=== PATIENT | male | born 1955 | race Caucasian/White ===

== ENCOUNTER 2017-07-23 13:50 | Inpatient (IN) | payer MEDICARE, OTHER ==
[~2017-07-23] VITALS: Ht 170.2 cm; Wt 61.2 kg
[2017-07-23] MEDS ORDERED: OLME40TA12 PO (14:19)
[2017-07-23] MEDS ORDERED: OMEG1CAP74 PO (14:19)
[2017-07-23] MEDS ORDERED: LEVO88TA5 PO (14:19)
[2017-07-23] MEDS ORDERED: METO100T3 PO (14:19)
[2017-07-23] MEDS ORDERED: DABI75CA3 PO (14:19)
[2017-07-23] MEDS ORDERED: PRED1TAB PO (14:19)
[2017-07-23] MEDS ORDERED: AMLO2.5T PO (14:19)
[2017-07-23] MEDS ORDERED: OMEP20CA10 PO (14:19)
[2017-07-23] MEDS ORDERED: BIMA2.5D5 EACHEYE (14:19)
[2017-07-23] MEDS ORDERED: AZAT50TA PO (14:19)
[2017-07-23] MEDS ORDERED: LABE200T PO (14:19)
[2017-07-23] MEDS ORDERED: LORA-588 PO (14:19)
[2017-07-23] MEDS ORDERED: LABE100T PO (14:19)
[2017-07-23] MEDS ORDERED: RISE150T PO (14:19)
[2017-07-23] MEDS ORDERED: TAMS0.4C34 PO (14:19)
[2017-07-23 14:35] LABS: BASOPHILS % (AUTO) 0.3 % (0.0-2.0); EOSINOPHILS # (AUTO) 0.1 K/uL (0.0-0.7); EOSINOPHILS % (AUTO) 0.9 % (0.0-7.0); HEMATOCRIT 35.8 % (40-50); HEMOGLOBIN 11.9 G/DL (14.0-18.0); LYMPHOCYTES # (AUTO) 0.4 K/UL (0.8-4.8); LYMPHOCYTES % (AUTO) 7.8 % (20.5-51.5); MEAN CORPUSCULAR HEMOGLOBIN 33.7 UUG (27.0-31.0); MEAN CORPUSCULAR HGB CONC 33 g/dL (32.0-37.0); MEAN CORPUSCULAR VOLUME 101.1 FL (82.0-92.0); MONOCYTES # (AUTO) 0.4 K/UL (0.1-1.30); MONOCYTES % (AUTO) 7.1 % (0.0-11.0); NEUTROPHILS # (AUTO) 4.7 K/UL (1.8-8.9); NEUTROPHILS % (AUTO) 83.9 % (38.5-71.5); PLATELET COUNT (AUTO) 289 K/UL (150-450); RED BLOOD CELL COUNT(AUTO) 3.54 MIL/UL (4.7-6.1); WHITE BLOOD COUNT (AUTO) 5.6 K/UL (4.0-11.2)
[2017-07-23 14:38] LABS: CREATININE 1.3 mg/dL (0.6-1.3); POTASSIUM 5.2 mmol/L (3.5-5.1)
[2017-07-23 14:49] LABS: BILIRUBIN,DIRECT 0.1 mg/dL (0.0-0.2); BILIRUBIN,TOTAL 0.6 mg/dL (0.2-1.0); TOTAL PROTEIN, SERUM 7.6 g/dL (6.4-8.2)
[2017-07-23 16:20] VITALS: BP 170/100
[2017-07-23 20:13] LABS: *BILIRUBIN,URIN NEGATIVE (NEGATIVE); *BLOOD, URINE NEGATIVE (NEGATIVE); *CLARITY,URINE CLEAR (CLEAR); *COLOR,URINE YELLOW (YELLOW); *KETONES,URINE NEGATIVE (NEGATIVE); *PROTEIN,URINE 1+ (NEGATIVE); LEUKOCYTE ESTERASE ,URINE NEGATIVE (NEGATIVE); NITRITE, URINE NEGATIVE (NEGATIVE); PH,URINE 7.5 (5.0-8.0); UGLUCOSE NEGATIVE (NEGATIVE)
[2017-07-23 20:23] LABS: MUCUS,URINE MODERATE /LPF (0-FEW); WBC,URINE 0-3 /HPF (0-3)
[2017-07-23 20:37] VITALS: BP 158/93
[2017-07-24 05:56] VITALS: BP 148/86
[2017-07-24 06:30] LABS: BASOPHILS % (AUTO) 0.5 % (0.0-2.0); EOSINOPHILS # (AUTO) 0.1 K/uL (0.0-0.7); EOSINOPHILS % (AUTO) 1.2 % (0.0-7.0); LYMPHOCYTES # (AUTO) 0.5 K/UL (0.8-4.8); LYMPHOCYTES % (AUTO) 9.3 % (20.5-51.5); MEAN CORPUSCULAR HEMOGLOBIN 33.1 UUG (27.0-31.0); MEAN CORPUSCULAR HGB CONC 33 g/dL (32.0-37.0); MEAN CORPUSCULAR VOLUME 101.1 FL (82.0-92.0); MONOCYTES # (AUTO) 0.4 K/UL (0.1-1.30); MONOCYTES % (AUTO) 8.3 % (0.0-11.0); NEUTROPHILS % (AUTO) 80.7 % (38.5-71.5)
[2017-07-24 06:31] LABS: RED BLOOD CELL COUNT(AUTO) 2.96 MIL/UL (4.7-6.1)
[2017-07-24 06:32] LABS: HEMATOCRIT 29.9 % (40-50); HEMOGLOBIN 9.8 G/DL (14.0-18.0); PLATELET COUNT (AUTO) 202 K/UL (150-450)
[2017-07-24 06:34] LABS: THYROID STIMULATING HORMONE 1.228 mIU/mL (0.358-3.740)
[2017-07-24 06:37] LABS: BILIRUBIN,TOTAL 0.7 mg/dL (0.2-1.0); MAGNESIUM 1.7 mg/dL (1.8-2.4); PHOSPHOROUS 2.5 mg/dL (2.5-4.9); POTASSIUM 4.2 mmol/L (3.5-5.1); TOTAL PROTEIN, SERUM 6.3 g/dL (6.4-8.2)
[2017-07-24] MEDS ORDERED: ALEN70TA45 PO (08:33)
[2017-07-24 10:17] LABS: IRON, SERUM 116 ug/dL (50-175)
[2017-07-24 11:38] VITALS: BP 99/50
[2017-07-24 11:55] VITALS: BP 113/77
[2017-07-24 16:54] VITALS: BP 103/69
[2017-07-24 20:00] VITALS: BP 115/69
[2017-07-25] VITALS (7 sets, daily range): BP systolic 105–138; BP diastolic 49–92
[2017-07-25 06:24] LABS: BILIRUBIN,TOTAL 0.9 mg/dL (0.2-1.0); CREATININE 0.9 mg/dL (0.6-1.3); MAGNESIUM 1.8 mg/dL (1.8-2.4); PHOSPHOROUS 2.7 mg/dL (2.5-4.9); POTASSIUM 3.9 mmol/L (3.5-5.1); TOTAL PROTEIN, SERUM 6.3 g/dL (6.4-8.2)
[2017-07-25 06:29] LABS: BASOPHILS % (AUTO) 0.2 % (0.0-2.0); EOSINOPHILS % (AUTO) 0.7 % (0.0-7.0); HEMATOCRIT 28.7 % (40-50); HEMOGLOBIN 9.8 G/DL (14.0-18.0); LYMPHOCYTES # (AUTO) 0.4 K/UL (0.8-4.8); LYMPHOCYTES % (AUTO) 6.2 % (20.5-51.5); MEAN CORPUSCULAR HEMOGLOBIN 34.4 UUG (27.0-31.0); MEAN CORPUSCULAR HGB CONC 34 g/dL (32.0-37.0); MONOCYTES # (AUTO) 0.5 K/UL (0.1-1.30); MONOCYTES % (AUTO) 7.8 % (0.0-11.0); NEUTROPHILS # (AUTO) 5.1 K/UL (1.8-8.9); NEUTROPHILS % (AUTO) 85.1 % (38.5-71.5); PLATELET COUNT (AUTO) 187 K/UL (150-450); RED BLOOD CELL COUNT(AUTO) 2.84 MIL/UL (4.7-6.1)
[2017-07-25 09:50] LABS: CREATININE 1.2 mg/dL (0.6-1.3); POTASSIUM 4.5 mmol/L (3.5-5.1)
[2017-07-25 09:53] LABS: EOSINOPHILS % (AUTO) 0.3 % (0.0-7.0); HEMATOCRIT 28.9 % (40-50); HEMOGLOBIN 9.6 G/DL (14.0-18.0); LYMPHOCYTES # (AUTO) 0.2 K/UL (0.8-4.8); MEAN CORPUSCULAR HEMOGLOBIN 33.4 UUG (27.0-31.0); MEAN CORPUSCULAR HGB CONC 33 g/dL (32.0-37.0); MEAN CORPUSCULAR VOLUME 100.3 FL (82.0-92.0); MONOCYTES # (AUTO) 0.5 K/UL (0.1-1.30); MONOCYTES % (AUTO) 6.3 % (0.0-11.0); NEUTROPHILS # (AUTO) 6.8 K/UL (1.8-8.9); NEUTROPHILS % (AUTO) 90.4 % (38.5-71.5); PLATELET COUNT (AUTO) 225 K/UL (150-450); RED BLOOD CELL COUNT(AUTO) 2.88 MIL/UL (4.7-6.1); WHITE BLOOD COUNT (AUTO) 7.5 K/UL (4.0-11.2)
[2017-07-25 11:44] LABS: BAND % (MANUAL) 3 % (0-10); LYMPHOCYTES % (MANUAL) 1 % (20-40); MONOCYTES % (MANUAL) 5 % (2-10); NEUTROPHILS % (MANUAL) 91 % (42-75)
[2017-07-26 00:07] VITALS: BP 115/75
[2017-07-26 04:34] VITALS: BP 117/79
[2017-07-26 07:18] LABS: BASOPHILS % (AUTO) 0.2 % (0.0-2.0); EOSINOPHILS % (AUTO) 0.7 % (0.0-7.0); HEMATOCRIT 25.8 % (40-50); HEMOGLOBIN 8.5 G/DL (14.0-18.0); LYMPHOCYTES # (AUTO) 0.6 K/UL (0.8-4.8); LYMPHOCYTES % (AUTO) 8.6 % (20.5-51.5); MEAN CORPUSCULAR HEMOGLOBIN 33.7 UUG (27.0-31.0); MEAN CORPUSCULAR HGB CONC 33 g/dL (32.0-37.0); MEAN CORPUSCULAR VOLUME 102.1 FL (82.0-92.0); MONOCYTES # (AUTO) 0.6 K/UL (0.1-1.30); MONOCYTES % (AUTO) 8.9 % (0.0-11.0); NEUTROPHILS # (AUTO) 5.5 K/UL (1.8-8.9); NEUTROPHILS % (AUTO) 81.6 % (38.5-71.5); PLATELET COUNT (AUTO) 204 K/UL (150-450); RED BLOOD CELL COUNT(AUTO) 2.53 MIL/UL (4.7-6.1); WHITE BLOOD COUNT (AUTO) 6.7 K/UL (4.0-11.2)
[2017-07-26 07:54] LABS: BILIRUBIN,TOTAL 0.7 mg/dL (0.2-1.0); CREATININE 0.9 mg/dL (0.6-1.3); MAGNESIUM 1.8 mg/dL (1.8-2.4); PHOSPHOROUS 2.4 mg/dL (2.5-4.9); POTASSIUM 4.1 mmol/L (3.5-5.1); TOTAL PROTEIN, SERUM 6.1 g/dL (6.4-8.2)
[2017-07-26 12:11] VITALS: BP 105/64
[2017-07-26 15:20] VITALS: BP 100/61
[2017-07-26 17:00] LABS: HEMOGLOBIN 8.8 G/DL (14.0-18.0)
[2017-07-26 20:00] VITALS: BP 100/64
[2017-07-27 04:00] VITALS: BP 144/79
[2017-07-27 06:40] LABS: BASOPHILS % (AUTO) 0.6 % (0.0-2.0); EOSINOPHILS % (AUTO) 0.8 % (0.0-7.0); LYMPHOCYTES # (AUTO) 0.6 K/UL (0.8-4.8); LYMPHOCYTES % (AUTO) 10.5 % (20.5-51.5); MEAN CORPUSCULAR HEMOGLOBIN 34.4 UUG (27.0-31.0); MEAN CORPUSCULAR HGB CONC 33 g/dL (32.0-37.0); MEAN CORPUSCULAR VOLUME 102.9 FL (82.0-92.0); MONOCYTES # (AUTO) 0.4 K/UL (0.1-1.30); MONOCYTES % (AUTO) 7.1 % (0.0-11.0); NEUTROPHILS # (AUTO) 5.1 K/UL (1.8-8.9); PLATELET COUNT (AUTO) 184 K/UL (150-450); WHITE BLOOD COUNT (AUTO) 6.1 K/UL (4.0-11.2)
[2017-07-27 06:49] LABS: HEMATOCRIT 23.7 % (40-50); HEMOGLOBIN 7.9 G/DL (14.0-18.0)
[2017-07-27 07:17] LABS: PHOSPHOROUS 2.1 mg/dL (2.5-4.9); TOTAL PROTEIN, SERUM 5.8 g/dL (6.4-8.2)
[2017-07-27 07:32] LABS: BILIRUBIN,TOTAL 0.6 mg/dL (0.2-1.0); CREATININE 0.8 mg/dL (0.6-1.3); MAGNESIUM 1.7 mg/dL (1.8-2.4)
[2017-07-27 11:42] VITALS: BP 113/72
[2017-07-27 15:29] VITALS: BP 116/77
[2017-07-27 20:28] VITALS: BP 123/81
[2017-07-28 00:33] VITALS: BP 138/80
[2017-07-28 04:00] VITALS: BP 130/75
[2017-07-28 06:41] LABS: BASOPHILS % (AUTO) 0.7 % (0.0-2.0); EOSINOPHILS # (AUTO) 0.1 K/uL (0.0-0.7); EOSINOPHILS % (AUTO) 1.5 % (0.0-7.0); HEMATOCRIT 24.3 % (40-50); LYMPHOCYTES # (AUTO) 0.6 K/UL (0.8-4.8); MEAN CORPUSCULAR HEMOGLOBIN 33.4 UUG (27.0-31.0); MEAN CORPUSCULAR HGB CONC 33 g/dL (32.0-37.0); MEAN CORPUSCULAR VOLUME 101.4 FL (82.0-92.0); MONOCYTES # (AUTO) 0.4 K/UL (0.1-1.30); MONOCYTES % (AUTO) 8.2 % (0.0-11.0); NEUTROPHILS # (AUTO) 3.9 K/UL (1.8-8.9); NEUTROPHILS % (AUTO) 77.6 % (38.5-71.5); PLATELET COUNT (AUTO) 214 K/UL (150-450)
[2017-07-28 07:14] LABS: BILIRUBIN,TOTAL 0.8 mg/dL (0.2-1.0); CREATININE 0.8 mg/dL (0.6-1.3); MAGNESIUM 1.9 mg/dL (1.8-2.4); PHOSPHOROUS 2.5 mg/dL (2.5-4.9); TOTAL PROTEIN, SERUM 5.8 g/dL (6.4-8.2)
[2017-07-28 11:35] VITALS: BP 95/56
[2017-07-28] MEDS ORDERED: ALEN70TA3 PO (12:51)
[2017-07-28] MEDS ORDERED: PANT40TA2 PO (12:51)
[2017-07-28] MEDS ORDERED: METO100T3 PO (12:51)
[2017-07-28] MEDS ORDERED: HYDR-3326 PO (12:51)
[2017-07-28] MEDS ORDERED: HYDR25TA86 PO (12:51)
[2017-07-28] MEDS ORDERED: POLY17PO4 PO (12:53)
== END 2017-07-28 13:40 | DRG 480 ==
LOC: ER 13:50 → MED 15:17 → TELE 07-27 18:52 → MED 07-28 10:30
PROVIDERS: ADMIT Internal Medicine; ATTEND Internal Medicine
PROC: 0QS906Z Reposition Left Femoral Shaft with Intramedullary Internal Fixation Device, Open Approach (ICD-10-PCS; principal; 2017-07-25 07:00)
DX: S72.302A Unspecified fracture of shaft of left femur, initial encounter for closed fracture (principal); N17.0 Acute kidney failure with tubular necrosis; E43 Unspecified severe protein-calorie malnutrition; D68.9 Coagulation defect, unspecified; K50.90 Crohn's disease, unspecified, without complications; Q23.1 Congenital insufficiency of aortic valve; I11.0 Hypertensive heart disease with heart failure; I50.9 Heart failure, unspecified; J98.11 Atelectasis; E83.42 Hypomagnesemia; E83.39 Other disorders of phosphorus metabolism; E87.5 Hyperkalemia; S80.212A Abrasion, left knee, initial encounter; Z86.718 Personal history of other venous thrombosis and embolism; Z88.0 Allergy status to penicillin; W01.0XXA Fall on same level from slipping, tripping and stumbling without subsequent striking against object, initial encounter; Y93.01 Activity, walking, marching and hiking; Y92.481 Parking lot as the place of occurrence of the external cause; Z79.01 Long term (current) use of anticoagulants; Z79.899 Other long term (current) drug therapy; F70 Mild intellectual disabilities; H91.90 Unspecified hearing loss, unspecified ear; Z79.52 Long term (current) use of systemic steroids; N40.0 Benign prostatic hyperplasia without lower urinary tract symptoms; S80.02XA Contusion of left knee, initial encounter; M54.5 Low back pain; I08.3 Combined rheumatic disorders of mitral, aortic and tricuspid valves; E83.51 Hypocalcemia; Z68.21 Body mass index [BMI] 21.0-21.9, adult; I77.819 Aortic ectasia, unspecified site; D53.9 Nutritional anemia, unspecified; R74.0 Nonspecific elevation of levels of transaminase and lactic acid dehydrogenase [LDH]; R73.9 Hyperglycemia, unspecified; Z86.03 Personal history of neoplasm of uncertain behavior
CPT/HCPCS: 36415; 70030-TC; 71010; 72100; 73502; 73551; 73560; 76000; 83550; 83735; 84100; 84132; 84443; 85018; 85025; 85730; 86140; 86850; 86900; 86901; 86920; 87086; 93005; 93307; 97110; 97116; 97530; A4217; A4649; A4663; J0690; J1720; J2250; J2270; J2370; J2405; J2765; J3010; J3475; J3490; J7030; J7040; J7120; J7500; J7512

== ENCOUNTER 2017-07-28 10:51 | Inpatient (IN) | payer MEDICARE, OTHER ==
[~2017-07-28] VITALS: Ht 172.7 cm; Wt 61.7 kg
[~2017-07-28 10:51] MED LIST: ALEN70TA45 PO; AMLO2.5T PO; AZAT50TA PO; BIMA2.5D5 EACHEYE; DABI75CA3 PO; LABE100T PO; LABE200T PO; LEVO88TA5 PO; LORA-588 PO; METO100T3 PO; OLME40TA12 PO; OMEG1CAP74 PO; OMEP20CA10 PO; PRED1TAB PO; TAMS0.4C34 PO
[2017-07-28] MEDS ORDERED: PANT40TA2 PO (12:51)
[2017-07-28] MEDS ORDERED: METO100T3 PO (12:51)
[2017-07-28] MEDS ORDERED: HYDR25TA86 PO (12:51)
[2017-07-28] MEDS ORDERED: HYDR-3326 PO (12:51)
[2017-07-28] MEDS ORDERED: ALEN70TA3 PO (12:51)
[2017-07-28] MEDS ORDERED: POLY17PO4 PO (12:53)
--- NOTE | 2017-07-28 14:00 | NUR ---
Pt arrived on ARU, awake, alert, oriented, and stable. pt arrived in a wheelchair accompanied by Becky TANG.. all pertinent assessments done including initial physical assessment. all wound pictures taken and placed in chart. all belongings accounted for and list on chart. med recon done and informed md about continuing medications. vital signs BP 103/71, 98.7 temp, pulse 86, RR 18, 96% o2 on RA. Accompanied with cousin Flaca, his primary caregiver. Pt and caregiver both supplied answers to assessment questions. Call light placed within reach. Will continue to monitor.
[2017-07-28] MEDS ORDERED: Z GUARD REMEDY PASTE 57 GM TUBE TOP PRN (14:30)
[2017-07-28 14:45] VITALS: BP 103/71
[2017-07-28] MEDS ORDERED: MIRALAX 17 GM POWD.PACK PO PRN (19:45)
[2017-07-28] MEDS ORDERED: hydrALAZINE HCL 25 MG TABLET PO PRN (19:45)
[2017-07-28] MEDS ORDERED: HYDROCODONE/APAP 5-325MG TABLET PO PRN (19:45)
[2017-07-28 20:36] VITALS: BP 128/82
[2017-07-28] MEDS ORDERED: AMLODIPINE 2.5 MG TABLET PO SCH (21:00)
[2017-07-28] MEDS ORDERED: LATANOPROST OPHT DROP 2.5 ML BOTTLE EACHEYE SCH (21:00)
[2017-07-28] MEDS ORDERED: TAMSULOSIN HCL 0.4 MG CAP.SR.24H PO SCH (21:00)
[2017-07-28] MEDS: AZATHIOPRINE 50 MG TABLET PO SCH (21:09)
[2017-07-28] MEDS: METOPROLOL TARTRATE 100 MG TABLET PO SCH (21:14)
[2017-07-28] MEDS: PRADAXA 75 MG PO SCH (21:15)
[2017-07-28] MEDS: OMEGA-3 FATTY ACIDS/FISH OIL CAPSULE PO SCH (21:17)
[2017-07-29] MEDS: LEVOTHYROXINE SODIUM 88 MCG TABLET PO SCH (06:44)
[2017-07-29] MEDS: PANTOPRAZOLE SODIUM 40 MG TABLET.DR PO SCH (06:45)
[2017-07-29 08:00] VITALS: BP 128/82
--- NOTE | 2017-07-29 08:22 | NUR ---
Assist patient to and from restroom per request of charge nurse. Exta large bm at this time. Notified pt nurse. Pt says he is ready to d/c.
[2017-07-29] MEDS ORDERED: Medication Not On Formulary EA (Loratadine 10 MG) PO SCH (09:00)
[2017-07-29] MEDS ORDERED: Medication Not On Formulary EA (Omega-3 Fatty Acids/Fish Oil (Fish Oil 1,000 Mg Softgel) PO SCH (09:00)
[2017-07-29] MEDS: PRADAXA 75 MG PO SCH ×2 (09:00→17:16)
[2017-07-29] MEDS ORDERED: DABIGATRAN ETEXILATE MESYLATE 75 MG CAPSULE PO SCH (09:00)
[2017-07-29] MEDS: OMEGA-3 FATTY ACIDS/FISH OIL CAPSULE PO SCH ×2 (09:30→17:23)
[2017-07-29] MEDS: LORATADINE 10 MG TABLET PO SCH (09:30)
[2017-07-29] MEDS: LABETALOL HCL 100 MG TABLET PO SCH (09:30)
[2017-07-29] MEDS: METOPROLOL TARTRATE 100 MG TABLET PO SCH ×2 (09:31→17:26)
[2017-07-29] MEDS: predniSONE 1 MG TABLET PO SCH (09:31)
--- NOTE | 2017-07-29 15:47 | NUR ---
[employer]s [employer] Director: SW met with pt and cousin in law at bedside to assess needs and provide support. Pt is a 61-year-old male admitted to ARU for functional declined and impaired mobility. Pt recently underwent ORIF of the left femur. Pt was asleep during interview, however pt's cousin in law Jeffery provided information. 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 However, per Jeffery the pt is very independent and lives close to his cousin who supervises him. Jeffery reported they often cook meals for him, but the pt also knows how to cook himself. He reported the pt takes the bus daily and goes to "work" at his cousins employment. Per Jeffery, this is to keep him "busy" and so that his cousin is able to supervise him daily. Per Jeffery, the pt fell at work on accident and has no hx of previous falls. He does not use any DME at home and is able to ambulate. The plan is for the pt to return home. Per Jeffery, the pt has a lot of support from his cousin. The goal is for the pt to ambulate once again and be discharged home. MONICA engaged in active listening. SW provided supportive counseling. SW will provide linkage to case management.
[2017-07-29] MEDS: LUMIGAN EACHEYE SCH (17:15)
[2017-07-29] MEDS: AZATHIOPRINE 50 MG TABLET PO SCH (17:17)
[2017-07-29] MEDS: TAMSULOSIN HCL 0.4 MG CAP.SR.24H PO SCH (17:23)
[2017-07-29] MEDS: AMLODIPINE 2.5 MG TABLET PO SCH (17:25)
[2017-07-29] MEDS: LABETALOL HCL 200 MG TABLET PO SCH (17:25)
[2017-07-29] MEDS ORDERED: LATANOPROST OPHT DROP 2.5 ML BOTTLE EACHEYE SCH (18:00)
[2017-07-29] MEDS ORDERED: BIMATOPROST 0.01% OPHT DROP 2.5 ML BOTTLE EACHEYE SCH (18:00)
--- NOTE | 2017-07-29 18:04 | NUR ---
DAILY NOTE IV D/C FROM LEFT FOOT #20 GAUGE. REMOVED INTACT DATED 07/26/17. PRESSURE APPLIED TO STOP BLEEDING. ODILIA WELL BY PT
--- NOTE | 2017-07-29 18:11 | NUR ---
DAILY NOTE ACCORDING TO FAMILY PT HAS AN ADVANCED DIRECTIVE AND WANTS TO BE A DNI. I INFORMED ALICIA THAT SHE NEEDS TO BRING IN THE ADVANCED DIRECTIVE. SHE SAYS SHE WILL BRING IT IN TOMORROW
[2017-07-29 19:00] VITALS: BP 79/48
[2017-07-29 20:00] VITALS: BP 87/54
[2017-07-29 20:01] VITALS: BP 90/59
[2017-07-29 20:12] VITALS: BP 98/59
--- NOTE | 2017-07-29 20:14 | NUR ---
Received patient laying in bed awake alert with delayed comprehension and communication bp 79/48. asymptomatic. denies dizziness. patient on several antihypertensive medications. last bp checked at 2009 98/50. MD made aware will continue to monitor. Addendum: 07/30/17 at 0220 by ANGELICA RODRIGUEZ RN [id number]: patient resting in bed. no s/s of hypotension or hypertension. no complaints of pain. will continue with plan of care.
[2017-07-30] MEDS: PANTOPRAZOLE SODIUM 40 MG TABLET.DR PO SCH (07:12)
[2017-07-30] MEDS: LEVOTHYROXINE SODIUM 88 MCG TABLET PO SCH (07:12)
[2017-07-30 08:29] VITALS: BP 120/86
[2017-07-30] MEDS: predniSONE 1 MG TABLET PO SCH (08:52)
[2017-07-30] MEDS: LORATADINE 10 MG TABLET PO SCH (08:55)
[2017-07-30] MEDS: LABETALOL HCL 100 MG TABLET PO SCH (08:55)
[2017-07-30] MEDS: OMEGA-3 FATTY ACIDS/FISH OIL CAPSULE PO SCH ×2 (08:55→17:54)
[2017-07-30] MEDS: METOPROLOL TARTRATE 100 MG TABLET PO SCH ×2 (08:56→18:51)
[2017-07-30] MEDS: PRADAXA 75 MG PO SCH ×2 (09:02→17:57)
--- NOTE | 2017-07-30 13:27 | NUR ---
Interdisciplinary Team Summary
[2017-07-30] MEDS: TAMSULOSIN HCL 0.4 MG CAP.SR.24H PO SCH (17:53)
[2017-07-30] MEDS: LABETALOL HCL 200 MG TABLET PO SCH (17:54)
[2017-07-30] MEDS: AMLODIPINE 2.5 MG TABLET PO SCH (17:55)
[2017-07-30] MEDS: AZATHIOPRINE 50 MG TABLET PO SCH (17:58)
[2017-07-30] MEDS: LUMIGAN EACHEYE SCH (17:58)
--- NOTE | 2017-07-30 18:51 | NUR ---
DAILY NOTE HELD LOPRESSOR FOR THIS EVENING DUE TO B/P WNL. EXPLAIN TO PT AND FAMILY AND THEY AGREE AND VERBALIZE UNDERSTANDING
--- NOTE | 2017-07-30 19:30 | NUR ---
RECEIVED PATIENT FROM DAY SHIFT NURSE. REPORT GIVEN AT BEDSIDE. PATIENT LYING IN BED. INTRODUCED SELF TO PATIENT. CALL LIGHT PLACED WITHIN REACH OF PATIENT. WILL CONTINUE TO MONITOR PATIENT THROUGH OUT SHIFT.
[2017-07-30 20:42] VITALS: BP 101/62
[2017-07-31] MEDS: PANTOPRAZOLE SODIUM 40 MG TABLET.DR PO SCH (06:30)
[2017-07-31] MEDS: LEVOTHYROXINE SODIUM 88 MCG TABLET PO SCH (06:30)
--- NOTE | 2017-07-31 06:53 | NUR ---
PATIENT SLEEPING IN BED COMFORTABLY WITH NO SIGNS OF PAIN OR DISTRESS. ALL MEDS GIVEN ORDERED. ALL NEEDS ATTENDED. PATIENT IN NO SIGN OF DISTRESS OR PAIN. SHIFT REPORT TO DAY SHIFT.
[2017-07-31 07:23] LABS: BASOPHILS % (AUTO) 0.7 % (0.0-2.0); EOSINOPHILS # (AUTO) 0.1 K/uL (0.0-0.7); EOSINOPHILS % (AUTO) 2.5 % (0.0-7.0); HEMOGLOBIN 7.8 G/DL (14.0-18.0); LYMPHOCYTES # (AUTO) 0.6 K/UL (0.8-4.8); LYMPHOCYTES % (AUTO) 13.8 % (20.5-51.5); MEAN CORPUSCULAR HEMOGLOBIN 34.1 UUG (27.0-31.0); MEAN CORPUSCULAR HGB CONC 33 g/dL (32.0-37.0); MEAN CORPUSCULAR VOLUME 102.4 FL (82.0-92.0); MONOCYTES # (AUTO) 0.4 K/UL (0.1-1.30); NEUTROPHILS # (AUTO) 3.3 K/UL (1.8-8.9); PLATELET COUNT (AUTO) 217 K/UL (150-450); WHITE BLOOD COUNT (AUTO) 4.4 K/UL (4.0-11.2)
[2017-07-31 07:36] LABS: HEMATOCRIT 23.5 % (40-50)
--- NOTE | 2017-07-31 07:45 | NUR ---
cRITICAL LAB VALUE REPORTED BY JONATHON GUZMAN. RBC-2.3, HCT-23.5, HBG-7.8. INFORMED DR BRADLEY. WILL RELAY TO COUSIN AND GIVE NECESSARY ORDERS.
[2017-07-31 07:52] LABS: BILIRUBIN,TOTAL 0.9 mg/dL (0.2-1.0); CREATININE 0.9 mg/dL (0.6-1.3); MAGNESIUM 1.6 mg/dL (1.8-2.4); PHOSPHOROUS 3.6 mg/dL (2.5-4.9); POTASSIUM 3.8 mmol/L (3.5-5.1); TOTAL PROTEIN, SERUM 5.8 g/dL (6.4-8.2)
[2017-07-31 08:00] VITALS: BP 116/75
--- NOTE | 2017-07-31 08:20 | NUR ---
Received patient, alert awake and oriented. No complaints of pain at this time. Not in any form of distress. With intact dressing over fore arm. Tolerated medications and breakfast well.
[2017-07-31] MEDS: LORATADINE 10 MG TABLET PO SCH (08:27)
[2017-07-31] MEDS: PRADAXA 75 MG PO SCH ×2 (08:27→17:09)
[2017-07-31] MEDS: predniSONE 1 MG TABLET PO SCH (08:27)
[2017-07-31] MEDS: OMEGA-3 FATTY ACIDS/FISH OIL CAPSULE PO SCH ×2 (08:27→17:09)
[2017-07-31] MEDS: METOPROLOL TARTRATE 100 MG TABLET PO SCH ×2 (08:27→17:10)
[2017-07-31] MEDS: LABETALOL HCL 100 MG TABLET PO SCH (08:28)
[2017-07-31] MEDS ORDERED: MAGNESIUM OXIDE 400 MG TABLET PO ONE (12:30)
--- NOTE | 2017-07-31 12:54 | NUR ---
SURGICAL DRESSING CHANGED OVER LEFTY HIP. WOUND OVER ARM CLEANED WITH NS. PATIENT'S RELATIVE REFUSES WOUND TO BE COVERED OVER LEFT ARM.
[2017-07-31] MEDS: LUMIGAN EACHEYE SCH (17:10)
[2017-07-31] MEDS: TAMSULOSIN HCL 0.4 MG CAP.SR.24H PO SCH (17:10)
[2017-07-31] MEDS: AZATHIOPRINE 50 MG TABLET PO SCH (17:10)
[2017-07-31] MEDS: LABETALOL HCL 200 MG TABLET PO SCH (17:11)
[2017-07-31] MEDS: AMLODIPINE 2.5 MG TABLET PO SCH (17:11)
--- NOTE | 2017-07-31 19:10 | NUR ---
Received MD order for 1 unit PRBC infusion
[2017-07-31] MEDS ORDERED: FUROSEMIDE 20 MG/2 ML VIAL IV PRN (19:15)
--- NOTE | 2017-07-31 19:55 | NUR ---
Recieved pt in bed, awake and oriented; verbally responsive and able to make needs known. No acute distress noted. No complaints of pain or discomfort at this time. Safety measures and fall precautions maintained, call light within reach. Bed locked, lowest position and side rails up x 2. Will continue to monitor.
[2017-07-31 20:00] VITALS: BP 112/66
--- NOTE | 2017-07-31 21:00 | NUR ---
Spoke with HANS Thayer, and made aware of MD orders. Received verbal consent with 2 RN witness. Consent signed and placed in chart.
[2017-07-31] MEDS ORDERED: IV NORMAL SALINE 250 ML IV PRN (23:00)
[2017-07-31 23:04] VITALS: BP 111/67
--- NOTE | 2017-07-31 23:04 | NUR ---
Started blood transfusion. Pt made aware of MD orders and procedure. No signs or symptoms of adverse reaction noted. No acute distress noted. Pt denies pain or discomfort at this time. Vitals stable and WNL. All safety measures maintained. RN at bedside.
[2017-07-31 23:19] VITALS: BP 103/64
[2017-07-31 23:34] VITALS: BP 109/69
[2017-08-01 00:34] VITALS: BP 114/73
[2017-08-01 01:34] VITALS: BP 117/60
[2017-08-01 02:04] VITALS: BP 149/90
--- NOTE | 2017-08-01 02:04 | NUR ---
Pt completed blood transfusion, tolerated well. VS stable and WNL. No acute distress noted. No adverse reactions noted. Pt in bed, appearing to be asleep but easily arousable to verbal stimuli. Pt denies discomfort or pain at this time. Pt alert and oriented, verbally responsive. All safety measures maintained, call light within reach. Will continue to monitor.
[2017-08-01] MEDS: PANTOPRAZOLE SODIUM 40 MG TABLET.DR PO SCH (06:17)
[2017-08-01] MEDS: LEVOTHYROXINE SODIUM 88 MCG TABLET PO SCH (06:17)
--- NOTE | 2017-08-01 06:31 | NUR ---
Pt in bed, awake alert and oriented. Stated that he slept "on and off" throughout the night due to the blood transfusion. Tolerated all medications well. No apparent distress noted. Call light within reach. Stable and all vital signs WNL. All safety measures and fall precautions maintained. Bed lowest position, locked and side rails up x 2.
[2017-08-01 07:57] VITALS: BP 126/80
--- NOTE | 2017-08-01 09:00 | NUR ---
pt seen and assessed. pt continues to have urge incontinence. pt continues to ask for help as needed. pt seen to overestimate own abilites. pt continued to be reoriented and educated about risks of falls. pt given meds as prescribed. pt ate breakfast. vitals stable. will continue to monitor.
[2017-08-01] MEDS: OMEGA-3 FATTY ACIDS/FISH OIL CAPSULE PO SCH ×2 (09:12→17:27)
[2017-08-01] MEDS: LABETALOL HCL 100 MG TABLET PO SCH (09:12)
[2017-08-01] MEDS: predniSONE 1 MG TABLET PO SCH (09:12)
[2017-08-01] MEDS: LORATADINE 10 MG TABLET PO SCH (09:12)
[2017-08-01] MEDS: METOPROLOL TARTRATE 100 MG TABLET PO SCH ×2 (09:13→17:24)
[2017-08-01] MEDS: PRADAXA 75 MG PO SCH ×2 (09:13→17:29)
[2017-08-01 11:37] LABS: *OCCULT BLOOD STOOL NEGATIVE (NEGATIVE)
[2017-08-01] MEDS: LABETALOL HCL 200 MG TABLET PO SCH (17:25)
[2017-08-01] MEDS: AMLODIPINE 2.5 MG TABLET PO SCH (17:25)
[2017-08-01] MEDS: TAMSULOSIN HCL 0.4 MG CAP.SR.24H PO SCH (17:27)
[2017-08-01] MEDS: LUMIGAN EACHEYE SCH (17:29)
[2017-08-01] MEDS: AZATHIOPRINE 50 MG TABLET PO SCH (17:29)
--- NOTE | 2017-08-01 17:30 | NUR ---
PT NOT GIVEN BP MEDS DUE TO DECREASED BLOOD PRESSURE. BP 103/58. PT ASYMPTOMATIC. WILL REASSESS FOR COMPLICATIONS.
--- NOTE | 2017-08-01 18:50 | NUR ---
pt stable. no signs of acute distress. pt assisted with urinal and bm as needed. pt continues to be impulsive on transfers and educated about falls. pt verbalizes understanding. pt continues to eat and take meds as prescibed. pt tolerates therapy. wound site intact no signs of infection. decreased bp. bp not given. will endorse to self pay collector nurse. 6
--- NOTE | 2017-08-01 20:00 | NUR ---
Received pt on bed alert and awake. No acute distress noted. No complaints of pain or discomfort. Breathing even and unlabored with normal respirations. Vital signs stable. Call light within reach. All needs attended.
[2017-08-01 20:52] VITALS: BP 109/73
--- NOTE | 2017-08-02 05:51 | NUR ---
patient slept well throughout the shift. No apparent distress noted. remains free from injuries. All needs anticipated.
[2017-08-02] MEDS: PANTOPRAZOLE SODIUM 40 MG TABLET.DR PO SCH (06:17)
[2017-08-02] MEDS: LEVOTHYROXINE SODIUM 88 MCG TABLET PO SCH (06:17)
[2017-08-02 07:12] LABS: BASOPHILS % (AUTO) 0.4 % (0.0-2.0); EOSINOPHILS # (AUTO) 0.1 K/uL (0.0-0.7); EOSINOPHILS % (AUTO) 1.8 % (0.0-7.0); LYMPHOCYTES # (AUTO) 0.7 K/UL (0.8-4.8); LYMPHOCYTES % (AUTO) 13.9 % (20.5-51.5); MEAN CORPUSCULAR HEMOGLOBIN 33.6 UUG (27.0-31.0); MEAN CORPUSCULAR HGB CONC 34 g/dL (32.0-37.0); MEAN CORPUSCULAR VOLUME 98.7 FL (82.0-92.0); MONOCYTES # (AUTO) 0.5 K/UL (0.1-1.30); NEUTROPHILS # (AUTO) 3.4 K/UL (1.8-8.9); NEUTROPHILS % (AUTO) 73.9 % (38.5-71.5); PLATELET COUNT (AUTO) 219 K/UL (150-450); WHITE BLOOD COUNT (AUTO) 4.7 K/UL (4.0-11.2)
[2017-08-02 07:40] LABS: HEMOGLOBIN 9.2 G/DL (14.0-18.0); RED BLOOD CELL COUNT(AUTO) 2.74 MIL/UL (4.7-6.1)
[2017-08-02] MEDS: METOPROLOL TARTRATE 100 MG TABLET PO SCH ×2 (08:00→18:00)
[2017-08-02 08:15] VITALS: BP 120/79
[2017-08-02] MEDS: LORATADINE 10 MG TABLET PO SCH (09:13)
[2017-08-02] MEDS: predniSONE 1 MG TABLET PO SCH (09:13)
[2017-08-02] MEDS: OMEGA-3 FATTY ACIDS/FISH OIL CAPSULE PO SCH ×2 (09:14→17:52)
[2017-08-02] MEDS: PRADAXA 75 MG PO SCH ×2 (09:14→17:52)
[2017-08-02] MEDS: LABETALOL HCL 100 MG TABLET PO SCH (09:15)
[2017-08-02] MEDS: TAMSULOSIN HCL 0.4 MG CAP.SR.24H PO SCH (17:52)
[2017-08-02] MEDS: AZATHIOPRINE 50 MG TABLET PO SCH (17:57)
[2017-08-02] MEDS: LABETALOL HCL 200 MG TABLET PO SCH (18:00)
[2017-08-02] MEDS: LUMIGAN EACHEYE SCH (18:00)
[2017-08-02] MEDS: AMLODIPINE 2.5 MG TABLET PO SCH (18:00)
--- NOTE | 2017-08-02 18:15 | NUR ---
DAILY NOTE EVENING MEDS- B/P MEDS HELD D/T B/P 107/71 PT AND FAMILY AGREE TO HOLD THE MEDS. BATSHEVA NOT GIVEN THIS IS HIS OWN MED FROM HOME AND I AM NOT ABLE TO LOCATE IT. FAMILY WILL BRING ANOTHER BOTTLE TOMORROW. OTHER MEDS GIVEN. HL D/C INTACT #20G. ODILIA WELL
--- NOTE | 2017-08-02 20:00 | NUR ---
PATIENT ALERT AND AWAKE. NO APPARENT DISTRESS. DENIES PAIN. CALM AND COOPERATIVE TO CARE. VITAL SIGNS STABLE. CALL LIGHT WITHIN REACH. ALL NEEDS ATTENDED.
[2017-08-02 20:33] VITALS: BP 100/64
--- NOTE | 2017-08-03 05:40 | NUR ---
PATIENT SLEPT WELL. NO ACUTE DISTRESS NOTED. FALL PRECAUTIONS OBSERVED. CALL LIGHT WITHIN REACH. ALL NEEDS ANTICIPATED
[2017-08-03] MEDS: PANTOPRAZOLE SODIUM 40 MG TABLET.DR PO SCH (06:22)
[2017-08-03] MEDS: LEVOTHYROXINE SODIUM 88 MCG TABLET PO SCH (06:23)
[2017-08-03 07:15] VITALS: BP 121/77
[2017-08-03 08:25] VITALS: BP 124/82
[2017-08-03] MEDS: predniSONE 1 MG TABLET PO SCH (08:49)
[2017-08-03] MEDS: LABETALOL HCL 100 MG TABLET PO SCH (08:50)
[2017-08-03] MEDS: OMEGA-3 FATTY ACIDS/FISH OIL CAPSULE PO SCH ×2 (08:51→17:07)
[2017-08-03] MEDS: PRADAXA 75 MG PO SCH ×2 (08:51→17:10)
[2017-08-03] MEDS: LORATADINE 10 MG TABLET PO SCH (08:52)
[2017-08-03] MEDS: METOPROLOL TARTRATE 100 MG TABLET PO SCH ×2 (08:54→17:56)
[2017-08-03] MEDS: AZATHIOPRINE 50 MG TABLET PO SCH (17:08)
[2017-08-03] MEDS: TAMSULOSIN HCL 0.4 MG CAP.SR.24H PO SCH (17:08)
[2017-08-03] MEDS: LABETALOL HCL 200 MG TABLET PO SCH (17:56)
[2017-08-03] MEDS: AMLODIPINE 2.5 MG TABLET PO SCH (17:56)
[2017-08-03] MEDS: LUMIGAN EACHEYE SCH (17:56)
--- NOTE | 2017-08-03 19:30 | NUR ---
RECEIVED PATIENT FROM DAY SHIFT NURSE. SHIFT REPORT GIVEN AT BEDSIDE. PATIENT SLEEPING IN BED WITH NO SIGNS OF DISTRESS OR PAIN. PATIENT A/O. CALL LIGHT PLACED WITHIN REACH OF PATIENT. WILL CONTINUE TO MONITOR THROUGH OUT SHIFT.
[2017-08-03 19:55] VITALS: BP 105/75
[2017-08-04] MEDS: LEVOTHYROXINE SODIUM 88 MCG TABLET PO SCH (06:18)
[2017-08-04] MEDS: PANTOPRAZOLE SODIUM 40 MG TABLET.DR PO SCH (06:18)
--- NOTE | 2017-08-04 06:54 | NUR ---
PATIENT SLEPT COMFORTABLY DURING THE SHIFT. NO SIGNS OF PAIN OR DISTRESS. ALL NEEDS ATTENDED & MEDICATIONS ADMINISTERED ORDERED.
--- NOTE | 2017-08-04 07:45 | NUR ---
Received patient asleep, non-labored breathing. Call light within reach.
--- NOTE | 2017-08-04 08:30 | NUR ---
Patient awake, tolerated breakfast and medications well. Denies of pain/ discomfort at this time. Encouraged to call for needs. Call light within reach.
[2017-08-04] MEDS: PRADAXA 75 MG PO SCH ×2 (08:50→17:03)
[2017-08-04] MEDS: METOPROLOL TARTRATE 100 MG TABLET PO SCH ×2 (08:50→17:05)
[2017-08-04] MEDS: LORATADINE 10 MG TABLET PO SCH (08:50)
[2017-08-04] MEDS: OMEGA-3 FATTY ACIDS/FISH OIL CAPSULE PO SCH ×2 (08:50→17:03)
[2017-08-04] MEDS: predniSONE 1 MG TABLET PO SCH (08:51)
[2017-08-04] MEDS: LABETALOL HCL 100 MG TABLET PO SCH (08:51)
--- NOTE | 2017-08-04 09:05 | NUR ---
Up with physical therapy. Tolerating therapy well. Able to ambulate.
--- NOTE | 2017-08-04 13:51 | NUR ---
Dressing changed and cleaned surgical incision.
[2017-08-04] MEDS: AZATHIOPRINE 50 MG TABLET PO SCH (17:03)
[2017-08-04] MEDS: AMLODIPINE 2.5 MG TABLET PO SCH (17:04)
[2017-08-04] MEDS: TAMSULOSIN HCL 0.4 MG CAP.SR.24H PO SCH (17:04)
[2017-08-04] MEDS: LABETALOL HCL 200 MG TABLET PO SCH (17:05)
[2017-08-04] MEDS: LUMIGAN EACHEYE SCH (17:06)
--- NOTE | 2017-08-04 19:30 | NUR ---
Received pt awake, alert and oriented in bed watching TV. No apparent distress noted. Pt is verbally responsive and able to make needs known. Pt denies any pain or discomfort at this time. All safety measures and fall precautions maintained. Call light within reach. Bed locked, in lowest position and side rails up x 2. HOB elevated 30 degrees. Will continue to monitor.
[2017-08-04 20:08] VITALS: BP 118/69
--- NOTE | 2017-08-05 05:34 | NUR ---
Pt slept well throughout shift. No apparent distress noted. All needs anticipated and met accordingly. Denies any pain or discomfort at this time and throughout shift. Tolerated all night medications well. All safety measures and fall precautions maintained. Call light within reach. Bed lowest position, locked and side rails up x 2.
[2017-08-05] MEDS: LEVOTHYROXINE SODIUM 88 MCG TABLET PO SCH (06:17)
[2017-08-05] MEDS: PANTOPRAZOLE SODIUM 40 MG TABLET.DR PO SCH (06:17)
--- NOTE | 2017-08-05 07:15 | NUR ---
Patient noted awake, resting on bed on a semi- roman's position, displays no s/sx of any discomforts or distress. No facial grimace, no moaning noted at this time. All needs attended and anticipated. Call light within reach. Bed on lowest position. Encouraged patient to use call light whenever assistance is needed. Will continue to monitor patient closely.
[2017-08-05 08:03] VITALS: BP 128/82
[2017-08-05] MEDS: OMEGA-3 FATTY ACIDS/FISH OIL CAPSULE PO SCH ×2 (08:51→17:22)
[2017-08-05] MEDS: METOPROLOL TARTRATE 100 MG TABLET PO SCH ×2 (08:52→17:23)
[2017-08-05] MEDS: LORATADINE 10 MG TABLET PO SCH (08:52)
[2017-08-05] MEDS: LABETALOL HCL 100 MG TABLET PO SCH (08:53)
[2017-08-05] MEDS: predniSONE 1 MG TABLET PO SCH (08:53)
[2017-08-05] MEDS: PRADAXA 75 MG PO SCH ×2 (09:14→17:24)
--- NOTE | 2017-08-05 10:00 | NUR ---
Patient able to ambulate with PT, tolerated well.
--- NOTE | 2017-08-05 11:34 | NUR ---
Patient noted awake, lying on bed on a high roman's position, alert and oriented able to verbalize needs with visitor at bed side. All needs attended and anticipated. Call light placed within reach. Encouraged patient to use call light whenever assistance is needed. Displays no facial grimace, no s/sx of distress or discomforts. Will continue to monitor closely.
--- NOTE | 2017-08-05 15:15 | NUR ---
Patient noted awake sitting on his chair while watching television with call light within reach. Display no s/sx of distress or discomforts. All needs attended and anticipated. Encouraged patient to use call light whenever assistance is needed. Will continue to monitor closely.
[2017-08-05] MEDS: TAMSULOSIN HCL 0.4 MG CAP.SR.24H PO SCH (17:22)
[2017-08-05] MEDS: LABETALOL HCL 200 MG TABLET PO SCH (17:23)
[2017-08-05] MEDS: AMLODIPINE 2.5 MG TABLET PO SCH (17:24)
[2017-08-05] MEDS: AZATHIOPRINE 50 MG TABLET PO SCH (17:24)
[2017-08-05] MEDS: LUMIGAN EACHEYE SCH (18:23)
--- NOTE | 2017-08-05 18:37 | NUR ---
Patient awake, alert lying on bed on a high roman's position with family member at bedside with call light within reach. Displays no s/sx of distress or discomforts. All needs attended and anticipated. bed on lowest position and bilateral side rails up for safety. Encouraged patient to use call light whenever assistance is needed.
--- NOTE | 2017-08-05 19:30 | NUR ---
RECEIVED PATIENT FROM DAY SHIFT NURSE. PATIENT A/O, NO SIGNS OF PAIN OR DISTRESS. SHIFT REPORT GIVEN AT BEDSIDE. PATIENT LYING IN BED COMFORTABLY, BED IN LOCKED POSITION. PERTINENT ASSESSMENTS DONE AT START OF SHIFT. CALL LIGHT PLACED WITHIN REACH OF PATIENT. WILL CONTINUE TO MONITOR PATIENT THROUGH OUT SHIFT.
[2017-08-05 20:11] VITALS: BP 123/74
[2017-08-05 20:24] VITALS: BP 115/60
[2017-08-06] MEDS: PANTOPRAZOLE SODIUM 40 MG TABLET.DR PO SCH (06:45)
[2017-08-06] MEDS: LEVOTHYROXINE SODIUM 88 MCG TABLET PO SCH (06:45)
--- NOTE | 2017-08-06 06:57 | NUR ---
PATIENT SLEPT COMFORTABLY THROUGH OUT THE NIGHT. NO SIGNS OF PAIN OR DISCOMFORT. ALL MEDICATIONS ADMINISTERED ORDERED. ALL NEEDS ATTENDED.
[2017-08-06 07:10] VITALS: BP 134/81
[2017-08-06] MEDS: OMEGA-3 FATTY ACIDS/FISH OIL CAPSULE PO SCH ×2 (08:49→18:00)
[2017-08-06] MEDS: LORATADINE 10 MG TABLET PO SCH (08:49)
[2017-08-06] MEDS: predniSONE 1 MG TABLET PO SCH (08:49)
[2017-08-06] MEDS: METOPROLOL TARTRATE 100 MG TABLET PO SCH ×2 (08:50→17:48)
[2017-08-06] MEDS: LABETALOL HCL 100 MG TABLET PO SCH (08:51)
[2017-08-06] MEDS: PRADAXA 75 MG PO SCH ×2 (08:51→17:58)
--- NOTE | 2017-08-06 13:33 | NUR ---
Interdisciplinary Rehab Summary
[2017-08-06] MEDS: AMLODIPINE 2.5 MG TABLET PO SCH (17:48)
[2017-08-06] MEDS: LABETALOL HCL 200 MG TABLET PO SCH (17:49)
[2017-08-06] MEDS: LUMIGAN EACHEYE SCH (18:00)
[2017-08-06] MEDS: AZATHIOPRINE 50 MG TABLET PO SCH (18:02)
[2017-08-06] MEDS: TAMSULOSIN HCL 0.4 MG CAP.SR.24H PO SCH (18:02)
[2017-08-06 19:00] VITALS: BP 101/67
--- NOTE | 2017-08-06 19:30 | NUR ---
RECEIVED PATIENT FROM DAY SHIFT NURSE. PATIENT LYING COMFORTABLY IN BED WITH NO SIGNS OF PAIN OR DISTRESS. SHIFT REPORT GIVEN AT BEDSIDE. PERTINENT ASSESSMENTS DONE AT START OF SHIFT. CALL LIGHT PLACED WITHIN REACH OF PATIENT. WILL CONTINUE TO MONITOR PATIENT THROUGH OUT SHIFT.
[2017-08-07] MEDS: LEVOTHYROXINE SODIUM 88 MCG TABLET PO SCH (06:42)
[2017-08-07] MEDS: PANTOPRAZOLE SODIUM 40 MG TABLET.DR PO SCH (06:42)
--- NOTE | 2017-08-07 06:59 | NUR ---
PATIENT COMFORTABLE THROUGH OUT SHIFT. NO SIGNS OF PAIN OR DISTRESS. ALL NEEDS ATTENDED TO. MEDICATIONS ADMINISTERED ORDERED. SHIFT REPORT GIVEN AT BEDSIDE.
[2017-08-07 08:06] VITALS: BP 128/78
[2017-08-07] MEDS: predniSONE 1 MG TABLET PO SCH (08:42)
[2017-08-07] MEDS: OMEGA-3 FATTY ACIDS/FISH OIL CAPSULE PO SCH ×2 (08:43→18:11)
[2017-08-07] MEDS: PRADAXA 75 MG PO SCH ×2 (08:43→17:00)
[2017-08-07] MEDS: LABETALOL HCL 100 MG TABLET PO SCH (08:44)
[2017-08-07] MEDS: LORATADINE 10 MG TABLET PO SCH (08:44)
[2017-08-07] MEDS: METOPROLOL TARTRATE 100 MG TABLET PO SCH ×2 (08:44→18:00)
[2017-08-07] MEDS: AMLODIPINE 2.5 MG TABLET PO SCH (18:00)
[2017-08-07] MEDS: LABETALOL HCL 200 MG TABLET PO SCH (18:00)
[2017-08-07] MEDS: TAMSULOSIN HCL 0.4 MG CAP.SR.24H PO SCH (18:11)
[2017-08-07] MEDS: AZATHIOPRINE 50 MG TABLET PO SCH (18:11)
[2017-08-07] MEDS: LUMIGAN EACHEYE SCH (18:12)
--- NOTE | 2017-08-07 19:00 | NUR ---
Awake during initial rounds. Denies any pain/discomforts at this time. Safety measures and fall precaution maintained. Continue current plan of care.
[2017-08-07 20:00] VITALS: BP 109/65
--- NOTE | 2017-08-08 05:11 | NUR ---
VS stable. Slept in between care. No complaint presented throughout the night. All needs attended and met. No significant event reported. Continue current plan of care.
[2017-08-08] MEDS: LEVOTHYROXINE SODIUM 88 MCG TABLET PO SCH (06:33)
[2017-08-08] MEDS: PANTOPRAZOLE SODIUM 40 MG TABLET.DR PO SCH (06:33)
--- NOTE | 2017-08-08 07:15 | NUR ---
Pt report received. Pt assessed to be awake, alert, and oriented x3. Pt sitting comfortably in semi-fowlers position. Pt reports no pain or discomfort at this time. Call light within reach and encouraged to use for assistance. Plan for the day discussed. Will continue to monitor closely.
[2017-08-08 07:59] LABS: BASOPHILS % (AUTO) 0.7 % (0.0-2.0); EOSINOPHILS # (AUTO) 0.1 K/uL (0.0-0.7); EOSINOPHILS % (AUTO) 2.1 % (0.0-7.0); HEMATOCRIT 26.4 % (36.7-47.1); HEMOGLOBIN 9.2 g/dL (12.5-16.3); LYMPHOCYTES # (AUTO) 0.6 K/uL (20.0-40.0); LYMPHOCYTES % (AUTO) 12.6 % (20.5-51.5); MEAN CORPUSCULAR HEMOGLOBIN 33.9 uug (23.8-33.4); MEAN CORPUSCULAR HGB CONC 35 g/dL (32.5-36.3); MEAN CORPUSCULAR VOLUME 97.7 fL (73.0-96.2); MONOCYTES # (AUTO) 0.4 K/uL (2.0-10.0); MONOCYTES % (AUTO) 8.8 % (0.0-11.0); NEUTROPHILS # (AUTO) 3.3 K/uL (1.8-8.9); NEUTROPHILS % (AUTO) 75.8 % (38.5-71.5); PLATELET COUNT (AUTO) 234 K/uL (152-348); WHITE BLOOD COUNT (AUTO) 4.4 K/uL (3.6-10.2)
[2017-08-08 08:06] LABS: CREATININE 0.9 mg/dL (0.6-1.3); POTASSIUM 3.6 mmol/L (3.5-5.1)
[2017-08-08 08:14] VITALS: BP 124/77
[2017-08-08] MEDS: LORATADINE 10 MG TABLET PO SCH (08:34)
[2017-08-08] MEDS: OMEGA-3 FATTY ACIDS/FISH OIL CAPSULE PO SCH ×2 (08:34→17:24)
[2017-08-08] MEDS: LABETALOL HCL 100 MG TABLET PO SCH (08:35)
[2017-08-08] MEDS: predniSONE 1 MG TABLET PO SCH (08:35)
[2017-08-08] MEDS: METOPROLOL TARTRATE 100 MG TABLET PO SCH ×2 (08:36→17:24)
[2017-08-08] MEDS: PRADAXA 75 MG PO SCH ×2 (08:45→17:24)
--- NOTE | 2017-08-08 13:05 | NUR ---
While working with physical therapy Pt complained of pain while attempting to ambulate during exercises. [place] pain medication administered per PRN orders for moderate pain 02/24. Will continue to monitor pain level per protocol.
[2017-08-08] MEDS: AMLODIPINE 2.5 MG TABLET PO SCH (17:23)
[2017-08-08] MEDS: TAMSULOSIN HCL 0.4 MG CAP.SR.24H PO SCH (17:23)
[2017-08-08] MEDS: LABETALOL HCL 200 MG TABLET PO SCH (17:24)
[2017-08-08] MEDS: LUMIGAN EACHEYE SCH (17:24)
[2017-08-08] MEDS: AZATHIOPRINE 50 MG TABLET PO SCH (17:27)
--- NOTE | 2017-08-08 18:30 | NUR ---
Assisted Pt back into bed from chair. Pt sitting comfortably with family at bedside. No complaints of pain or distress at this time. All comfort and safety measures in place. No changes in status during this shift. All medications and therapies well tolerated today. Call light within reach, and Pt teaching reinforced to use when in need of assistance to the restroom. Will endorse all Pt details to oncoming assistant shift supervisor.
[2017-08-08 19:51] VITALS: BP 93/55
--- NOTE | 2017-08-08 19:56 | NUR ---
NSG:RECEIVED PATIENT LAYING IN BED. PATIENT A/O X3,PLEASANT UPON APPROACH. STATED IA M GOING HOME FRIDAY.THIS IS MY LAST WEEK HEAR. NO SIGNS OF PAIN OR DISTRESS NOTED THIS TIME.BED IN LOCKED POSITION. CALL LIGHT WITHIN REACH OF . INSTRUCTED TO CALL NURSE FOR PAIN OR ASSISTANCE VIA CALL LIGHT.WILL CONTINUE TO MONITOR PATIENT THROUGH OUT SHIFT.
--- NOTE | 2017-08-09 00:11 | NUR ---
NSG: RESTING IN BED COMFORTABLY. NO S/S OF PAIN OR DISCOMFORT NOTED. CONTINUE TO MONITORING FOR SAFETY.
[2017-08-09] MEDS: LEVOTHYROXINE SODIUM 88 MCG TABLET PO SCH (06:10)
[2017-08-09] MEDS: PANTOPRAZOLE SODIUM 40 MG TABLET.DR PO SCH (06:10)
[2017-08-09 06:19] VITALS: BP 120/79
--- NOTE | 2017-08-09 06:31 | NUR ---
NSG: PATIENT REMAIN COMFORTABLE THROUGH OUT TECHNICAL SERVICES SPECIALIST. NO SIGNS OF PAIN OR DISTRESS. ASSISTED TO USE URINAL. PATIENT IS CALM AND COMFORTABLE WITH MEDS AND CARE. NO C/O PAIN OR ASSISTANCE. V/S WNL.CONTINUE PLAN OF CARE.
--- NOTE | 2017-08-09 07:46 | NUR ---
Resident awake alert and oriented able to verbalize needs. All needs attended and anticipated. Call light within reach. Will continue to monitor patient closely.
[2017-08-09] MEDS: METOPROLOL TARTRATE 100 MG TABLET PO SCH ×2 (08:07→17:10)
[2017-08-09] MEDS: LORATADINE 10 MG TABLET PO SCH (09:03)
[2017-08-09] MEDS: predniSONE 1 MG TABLET PO SCH (09:03)
[2017-08-09] MEDS: OMEGA-3 FATTY ACIDS/FISH OIL CAPSULE PO SCH ×2 (09:03→17:08)
[2017-08-09] MEDS: LABETALOL HCL 100 MG TABLET PO SCH (09:04)
[2017-08-09] MEDS: PRADAXA 75 MG PO SCH ×2 (09:06→17:10)
[2017-08-09 09:52] VITALS: BP 128/75
--- NOTE | 2017-08-09 10:00 | NUR ---
Seen and examined by Dr. Kaplan with no new order at this time.
--- NOTE | 2017-08-09 11:23 | NUR ---
Patient alert and oriented sitting on the chair at bedside able to verbalize needs with visitors at bed side. All needs attended and anticipated. No s/sx of distress or discomforts noted at this time. Call light within reach. Encouraged patient to use call light whenever assistance is needed. Will continue to monitor.
--- NOTE | 2017-08-09 14:29 | NUR ---
Patient noted asleep, lying on bed on a semi- roman's position, easily arousable. No s/sx of distress or discomforts noted. All needs attended and anticipated. Call light within reach. Encouraged patient to use call light whenever assistance is needed.
--- NOTE | 2017-08-09 16:18 | NUR ---
Patient awake, sitting on the chair at bedside with no s/sx of discomforts/ distress. no moaning, facial grimace noted. All needs attended and anticipated. Call light placed within reach. reminded the patient to use the call light whenever assistance is needed. Will continue to monitor closely.
[2017-08-09] MEDS: LABETALOL HCL 200 MG TABLET PO SCH (17:08)
[2017-08-09] MEDS: LUMIGAN EACHEYE SCH (17:08)
[2017-08-09] MEDS: TAMSULOSIN HCL 0.4 MG CAP.SR.24H PO SCH (17:08)
[2017-08-09] MEDS: AZATHIOPRINE 50 MG TABLET PO SCH (17:09)
[2017-08-09] MEDS: AMLODIPINE 2.5 MG TABLET PO SCH (17:09)
--- NOTE | 2017-08-09 17:20 | NUR ---
Patient alert awake, sitting on the chair at bedside with family member at bedside. all medications were given, all tolerated well. All needs attended and anticipated. Call light placed within reach.
--- NOTE | 2017-08-09 19:00 | NUR ---
RECEIVED PT RESTING COMFORTABLY IN BED. AWAKE, ALERT, AND ORIENTED. PT VERBALIZED WILLINGNESS TO GO HOME. NO ACUTE DISTRESS NOTED. NO C/O PAIN. SAFETY MEASURES MAINTAINED. CALL LIGHT WITHIN REACH. WILL CONTINUE TO MONITOR.
--- NOTE | 2017-08-09 19:00 | NUR ---
Patient awake, lying on bed, resting with no s/sx of distress/ discomforts call light within reach. Call light within reach. Encouraged patient to use call light whenever assistance is needed. Endorsed to incoming shift.
[2017-08-09 19:30] VITALS: BP 104/65
[2017-08-10] MEDS: LEVOTHYROXINE SODIUM 88 MCG TABLET PO SCH (06:06)
[2017-08-10] MEDS: PANTOPRAZOLE SODIUM 40 MG TABLET.DR PO SCH (06:06)
--- NOTE | 2017-08-10 06:30 | NUR ---
Pt slept intermittently t/o the night. Assisted to use urinal 5x. No signs of acute distress. No complaints of pain or discomfort. All medication given as prescribed. All needs attended. Safety measures maintained. Call light within reach. Continue to monitor.
--- NOTE | 2017-08-10 08:00 | NUR ---
Patient awake, alert and oriented lying on bed on a semi roman's position, resting with his call light within reach. All his needs were attended and anticipated. Reminded patient to use his call light whenever assistance is needed. Will continue to monitor closely.
[2017-08-10] MEDS: predniSONE 1 MG TABLET PO SCH (08:34)
[2017-08-10] MEDS: PRADAXA 75 MG PO SCH ×2 (08:34→17:00)
[2017-08-10] MEDS: OMEGA-3 FATTY ACIDS/FISH OIL CAPSULE PO SCH ×2 (08:34→17:01)
[2017-08-10] MEDS: LABETALOL HCL 100 MG TABLET PO SCH (08:35)
[2017-08-10] MEDS: METOPROLOL TARTRATE 100 MG TABLET PO SCH ×2 (08:35→17:02)
[2017-08-10] MEDS: LORATADINE 10 MG TABLET PO SCH (08:35)
--- NOTE | 2017-08-10 08:45 | NUR ---
Patient ambulated with Physical Therapy in stable condition.
--- NOTE | 2017-08-10 10:00 | NUR ---
Patient came back from physical therapy in stable condition. no s/sx of distress or discomforts noted. per patient he doesn't have any pain. All needs attended and anticipated. Call light placed within reach. Will continue to monitor closely.
--- NOTE | 2017-08-10 14:55 | NUR ---
Patient awake, lying on bed with no s/sx of distress or discomforts. Assisted pt to ambulate to go to the bathroom to urinate without any difficulties.
[2017-08-10] MEDS: LUMIGAN EACHEYE SCH (17:00)
[2017-08-10] MEDS: AZATHIOPRINE 50 MG TABLET PO SCH (17:00)
[2017-08-10] MEDS: TAMSULOSIN HCL 0.4 MG CAP.SR.24H PO SCH (17:01)
[2017-08-10] MEDS: AMLODIPINE 2.5 MG TABLET PO SCH (17:01)
[2017-08-10] MEDS: LABETALOL HCL 200 MG TABLET PO SCH (17:02)
--- NOTE | 2017-08-10 18:49 | NUR ---
patient awake, alert, lying on bed with head of bed above 45 degrees, resting while watching television. Patient very excited and stated "I'm going home Friday! I am so excited" All needs attended and anticipated. Call light within reach. Reminded the patient to always use the call light whenever assistance is needed. No s/sx of distress or discomforts noted.
--- NOTE | 2017-08-10 19:33 | NUR ---
Received pt in bed, awake alert and oriented currently watching TV. No acute distress noted. Verbally responsive and able to verbalize needs. Denies pain or discomfort at this time. Pt stated "I am going home Friday! I am so excited to go home!" All safety measures and fall precautions maintained, call light within reach. Bed locked, in lowest position and side rails up x 2. Will continue to monitor.
[2017-08-10 20:00] VITALS: BP 105/55
[2017-08-11] MEDS: PANTOPRAZOLE SODIUM 40 MG TABLET.DR PO SCH (06:10)
[2017-08-11] MEDS: LEVOTHYROXINE SODIUM 88 MCG TABLET PO SCH (06:10)
--- NOTE | 2017-08-11 06:35 | NUR ---
Pt slept well most of the night, waking up to use urinal. Assisted x5. Denies pain or discomfort. No acute distress noted. Tolerated all medications well. All safety measures and fall precautions maintained. Call light within reach. Will continue to monitor.
[2017-08-11] MEDS: METOPROLOL TARTRATE 100 MG TABLET PO SCH ×2 (08:09→17:25)
[2017-08-11] MEDS: LABETALOL HCL 100 MG TABLET PO SCH (08:09)
[2017-08-11] MEDS: LORATADINE 10 MG TABLET PO SCH (08:09)
[2017-08-11] MEDS: OMEGA-3 FATTY ACIDS/FISH OIL CAPSULE PO SCH ×2 (08:09→17:23)
[2017-08-11] MEDS: PRADAXA 75 MG PO SCH ×2 (08:10→17:25)
[2017-08-11] MEDS: predniSONE 1 MG TABLET PO SCH (08:10)
--- NOTE | 2017-08-11 09:08 | NUR ---
pt seen on rounding. pt is awake and alert x4. vitals checked and stable. pt ate breakfast and assisted to the bathroom. pt voided and bm. pt is supervision on transfers and walking. no new injuries noted. will continue to assess for complications.
[2017-08-11] MEDS: LABETALOL HCL 200 MG TABLET PO SCH (17:24)
[2017-08-11] MEDS: TAMSULOSIN HCL 0.4 MG CAP.SR.24H PO SCH (17:24)
[2017-08-11] MEDS: AZATHIOPRINE 50 MG TABLET PO SCH (17:25)
[2017-08-11] MEDS: AMLODIPINE 2.5 MG TABLET PO SCH (17:25)
[2017-08-11] MEDS: LUMIGAN EACHEYE SCH (17:26)
--- NOTE | 2017-08-11 19:00 | NUR ---
pt stable throughout the day. pt continues to be assisted on transfers. pt continues to not pace himself and is still a fall risk. pt took meds as prescribed. ate meals and had hydration throughout the day. pt had a bm and voided. all prescriptions for dc on chart. will endorse new orders to senior software quality analyst nurse.
--- NOTE | 2017-08-11 19:41 | NUR ---
Received pt on bed alert, awake and oriented x4. Able to make needs known. No apparent distress. no complaints of pain or discomfort. Vital signs stable, BP 117/64, HR 65, Temp 98.0, RR 20, O2 sat 95% RA. kept clean, dry and comfortable. Call light within reach. All needs anticipated. Will continue to monitor.
[2017-08-11 20:00] VITALS: BP 117/64
--- NOTE | 2017-08-12 06:10 | NUR ---
Pt slept well throughout the shift. No acute distress noted. All due meds given as ordered and well tolerated. Denies pain. kept clean, dry and comfortable. Safety precautions observed. Call light within reach. All needs attended.
[2017-08-12] MEDS: LEVOTHYROXINE SODIUM 88 MCG TABLET PO SCH (06:20)
[2017-08-12] MEDS: PANTOPRAZOLE SODIUM 40 MG TABLET.DR PO SCH (06:20)
--- NOTE | 2017-08-12 08:00 | NUR ---
Received patient awake, alert and verbally responsive resting in bed. Denies any pain. Not in any form of distress. Patient eager and ready to go home.
[2017-08-12] MEDS: OMEGA-3 FATTY ACIDS/FISH OIL CAPSULE PO SCH (09:02)
[2017-08-12] MEDS: predniSONE 1 MG TABLET PO SCH (09:02)
[2017-08-12] MEDS: LORATADINE 10 MG TABLET PO SCH (09:02)
[2017-08-12] MEDS: PRADAXA 75 MG PO SCH (09:02)
[2017-08-12] MEDS: METOPROLOL TARTRATE 100 MG TABLET PO SCH (09:03)
[2017-08-12 09:04] VITALS: BP 128/79
[2017-08-12] MEDS: LABETALOL HCL 100 MG TABLET PO SCH (09:04)
--- NOTE | 2017-08-12 12:00 | NUR ---
REMOVED JOSE ORDERED BY DUSTY MARLOW. WOUND HEALING WELL. NO BLEEDING OR DISCHARGE IN SURGICAL SITE.
--- NOTE | 2017-08-12 12:45 | NUR ---
DISCHARGED IN STABLE CONDITION. NO COMPLAINTS OF PAIN. VITAL SIGNS STABLE. INSTRUCTED TO MAINTAIN CARDIAC DIET, TAKE MEDICATIONS PRESCRIBED AND FOLLOW-UP CHECK-UP WITH DR. ORTEGA ON 2016 AT 10:45 AM. INSTRUCTED TO AMBULATE WITH FRONT WHEEL WALKER. ROUTINE EXIT CARE DONE, EDUCATIONAL MATERIALS PROVIDED. WENT HOME WITH FWW AND BEDSIDE COMMODE. WENT HOME ACCOMPANIED BY ALICIA HOGUE VIA PRIVATE CAR.
== END 2017-08-12 12:45 | disposition home health service (06) | DRG 560 ==
PROVIDERS: ADMIT Physical Medicine & Rehabilitation Pain Medicine; ATTEND Physical Medicine & Rehabilitation Pain Medicine
PROC: 30233N1 Transfusion of Nonautologous Red Blood Cells into Peripheral Vein, Percutaneous Approach (ICD-10-PCS; principal; 2017-07-31)
DX: S72.302D Unspecified fracture of shaft of left femur, subsequent encounter for closed fracture with routine healing (principal); D68.9 Coagulation defect, unspecified; I11.0 Hypertensive heart disease with heart failure; I95.9 Hypotension, unspecified; I50.32 Chronic diastolic (congestive) heart failure; K50.90 Crohn's disease, unspecified, without complications; E83.42 Hypomagnesemia; W18.30XD Fall on same level, unspecified, subsequent encounter; D53.9 Nutritional anemia, unspecified; N40.0 Benign prostatic hyperplasia without lower urinary tract symptoms; F70 Mild intellectual disabilities; Z86.718 Personal history of other venous thrombosis and embolism; H91.90 Unspecified hearing loss, unspecified ear; E83.51 Hypocalcemia; M54.5 Low back pain; M47.816 Spondylosis without myelopathy or radiculopathy, lumbar region; I08.3 Combined rheumatic disorders of mitral, aortic and tricuspid valves; Z79.01 Long term (current) use of anticoagulants; Z88.0 Allergy status to penicillin; K59.00 Constipation, unspecified
CPT/HCPCS: 36415; 83735; 84100; 85025; 86850; 86900; 86901; 86920; 92526; 92610; 97110; 97112; 97116; 97165; 97530; 97535; A4663; J1940; J7050; J7500; J7512; P9016-BL; P9021